=== PATIENT | male | born 1955 | race Hispanic/Latino ===

== ENCOUNTER 2022-02-03 05:49 | Day surgery (SDC) | payer MEDICARE ==
[2022-01-30 10:18] LABS: BASOPHILS % (AUTO) 0.8 % (0.0-5.0); EOSINOPHILS % (AUTO) 2.3 % (0.0-8.0); HEMATOCRIT 44.3 % (42-54); LYMPHOCYTES % (AUTO) 30.7 % (21.0-51.0); MEAN CORPUSCULAR HEMOGLOBIN 25.3 pg (27.0-33.0); MEAN CORPUSCULAR HGB CONC 31.6 g/dL (32.0-36.0); MONOCYTES % (AUTO) 9.6 % (3.0-13.0); NEUTROPHILS % (AUTO) 56.3 % (40.0-77.0); PLATELET COUNT (AUTO) 251 K/uL (130-400); RED BLOOD CELL COUNT(AUTO) 5.54 MIL/uL (4.50-6.20); RED CELL DISTRIBUTION WIDTH 13.7 % (11.0-15.5); WHITE BLOOD COUNT (AUTO) 8.8 K/uL (4.8-10.8)
[2022-01-30 10:27] LABS: POTASSIUM 4.3 mmol/L (3.5-5.1)
[2022-01-30 10:28] LABS: INR 0.99 (0.85-1.15); PROTHROMBIN TIME 10.8 SEC (9.6-11.6)
[2022-01-30 10:29] LABS: PARTIAL THROMBOPLASTIN TIME 27.8 SEC (26.3-35.5)
[2022-01-30 14:25] VITALS: BP 139/71
[~2022-02-03] VITALS: Ht 172.7 cm; Wt 90.4 kg
[~2022-02-03 05:49] MED LIST: AEC81 PO; ATEN25TA PO; ATOR20TA65 PO; DRON400T7 PO; OMEG-116 PO
[2022-02-03] MEDS ORDERED: BUPIVACAINE/PF 0.25% 30ML VIAL IJ ONE (07:08)
[2022-02-03] MEDS ORDERED: CEFAZOLIN SODIUM 1 GM VIAL ONE (07:08)
[2022-02-03] MEDS ORDERED: LIDOCAINE HCL 1% 10 ML VIAL ONE (07:08)
[2022-02-03] MEDS ORDERED: 0.9%NACL 1000ML 1,000 ML IV SCH (08:00)
[2022-02-03] MEDS ORDERED: MIDAZOLAM HCL 1 MG/ML 2ML VIAL ONE (08:02)
[2022-02-03] MEDS ORDERED: MEPERIDINE-PF 25 MG/ML SYG ONE (08:02)
[2022-02-03] MEDS ORDERED: ACETAMINOPHEN WITH CODEINE 1 TAB TAB PO PRN (08:30)
[2022-02-03 08:45] VITALS: BP 121/62
[2022-02-03 09:00] VITALS: BP 113/63
[2022-02-03 09:17] VITALS: BP 112/48
[2022-02-03 09:31] VITALS: BP 113/62
== END 2022-02-03 12:30 | disposition home or self-care (01) ==
LOC: DAH 05:49
PROVIDERS: ATTEND Internal Medicine Cardiovascular Disease
DX: I48.0 Paroxysmal atrial fibrillation (principal); I49.1 Atrial premature depolarization; Z79.01 Long term (current) use of anticoagulants; Z79.82 Long term (current) use of aspirin; Z79.899 Other long term (current) drug therapy
CPT/HCPCS: 80048; 85025; 85610; 85730; 36415; 93005; 33285; A4649; C1764; J3490 ×2; J2250; J2175; A4215; A4222; A4221; A4663; A4216; A4606; A4223 ×3; 33286; 99156; 99157; J0690

== ENCOUNTER → 2023-01-26 | Outpatient (CLI) | payer MEDICARE | END | disposition home or self-care (01) | LOC: SHCH 12:46 | PROVIDERS: ATTEND Internal Medicine Cardiovascular Disease | DX: I48.0 Paroxysmal atrial fibrillation (principal); I08.3 Combined rheumatic disorders of mitral, aortic and tricuspid valves | CPT/HCPCS: 93306 ==